=== PATIENT | female | born 1935 | race Caucasian/White ===

== ENCOUNTER → 2019-05-02 10:43 | Outpatient (CLI) | payer MEDICARE, OTHER, SELFPAY ==
--- NOTE | 2019-05-02 10:47 | DI.MRI.S_ITS ---
PROCEDURE: MR LUMBAR SPINE WO CON INDICATIONS: Lumbar radiculopathy right TECHNIQUE: Noncontrast sagittal T1 spin echo and T2 fast echo, sagittal STIR, axial T1 and T2 fast spin echo through the lumbar spine. In cases with scoliosis, additional coronal T2 fast spin echo may be performed. COMPARISON: [facility], CR, XR LUMBAR SPINE MIN 4V, 05/02/2019, 11:39. [facility], MR, L-SPINE WITHOUT CONTRAST, 09/07/2010, 19:54. FINDINGS: Image quality: Excellent. Miscellaneous: There are 6 nonrib-bearing lumbar vertebral bodies. The highest [id number] lumbar vertebral body will be labeled as T12, in keeping with the previous lumbar numbering system. Axial imaging will be described as being from T10-T11 through L5-S1. Alignment and Curvature: Utilizing the above numbering system, mild degenerative anterolisthesis of L5 on S1 and L4 on L5 is again noted. There is trace degenerative retrolisthesis of L2 on L3 and of L1 on L2. Bone Marrow: Marrow is of normal overall signal. No acute vertebral body compression fractures. Spinal Cord: Conus medullaris terminates at the T12-L1 level. Visualized cord demonstrates normal signal and size. Paraspinous Soft Tissues: No paravertebral masses. T10-T11: No canal stenosis or foraminal stenosis. T11-T12: Mild disc bulge. No canal stenosis or foraminal stenosis. T12-L1: A disc bulge has increased, and is now moderate. Mild facet hypertrophy. No significant canal stenosis. Mild bilateral foraminal stenosis. L1-L2: Mild disc bulge. Mild facet ligament hypertrophy. Mild canal stenosis. Mild to moderate right foraminal stenosis. L2-L3: Significant interval progression. Moderately severe disc height loss. Diffuse disc bulge. Facet and ligament hypertrophy. Severe canal stenosis. Mild to moderate bilateral foraminal stenosis. L3-L4: Significant interval progression. Interval increase in disc height loss, mild to moderate. Diffuse disc bulge. Facet and ligament hypertrophy. Moderate canal stenosis. Mild to moderate right foraminal narrowing. Mild left foraminal narrowing. L4-L5: Worsening of disc height loss, moderately severe. Significant progression of facet arthropathy. Mild canal stenosis. Mild to moderate bilateral foraminal stenosis. L5-S1: Progression of bilateral facet hypertrophy. Mild canal stenosis. Mild to moderate right foraminal stenosis. IMPRESSION: 1. If surgery is contemplated in this individual, please note the numbering system utilized in this dictation corresponds to the numbering system on the prior MRI. There are, in fact, 6 nonrib-bearing lumbar vertebral bodies. The highest of these levels is labeled as T12. Careful correlation for surgical levels is suggested. 2. Significant interval progression. Canal stenosis is now mild at L1-L2, severe at L2-L3, moderate at L3-L4, mild at L4-L5, and mild at L5-S1. 3. Multilevel facet arthropathy. Dictated by: Rene Forrest M.D. on 05/02/2019 at 16:39 Approved by: Rene Forrest M.D. on 05/02/2019 at 17:04
--- NOTE | 2019-05-02 10:47 | DI.RAD.S_ITS ---
PROCEDURE: XR LUMBAR SPINE MIN 4V INDICATIONS: Lumbar radiculopathy right TECHNIQUE: 5 views of the lumbar spine were acquired. COMPARISON: None. FINDINGS: Bones: No fracture or focal osseous destruction. Dextrocurvature noted. Multilevel degenerative endplate sclerosis and spurring. Diffuse facet arthropathy. Prominent anterior osteophytes, some of which demonstrate bridging. Severe narrowing of the L4-L5 and L5-S1 disc spaces. Grade 1 anterolisthesis of L4 on L5. Moderate narrowing of the remaining disc spaces. Possible syndesmophyte formation present in the visualized lower thoracic spine. Bilateral hip joint degeneration, moderate. Soft tissues: Overlying bowel gas pattern is normal. No suspicious soft tissue calcifications. Oblique images: No pars defects. IMPRESSION: Severe lumbar spondylosis and facet arthropathy . 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 Dextroscoliosis Dictated by: Lanre Barajas M.D. on 05/02/2019 at 13:50 Approved by: Lanre Barajas M.D. on 05/02/2019 at 13:58
== END ==
PROVIDERS: PCP Internal Medicine; Referring Provider Physical Medicine & Rehabilitation; Visit Provider Physical Medicine & Rehabilitation
DX: M47.26 Other spondylosis with radiculopathy, lumbar region (principal); M47.27 Other spondylosis with radiculopathy, lumbosacral region; M48.061 Spinal stenosis, lumbar region without neurogenic claudication; M48.07 Spinal stenosis, lumbosacral region
CPT/HCPCS: 72110; 72148

== ENCOUNTER → 2019-09-04 11:43 | Outpatient (CLI) | payer MEDICARE, OTHER, SELFPAY ==
--- NOTE | 2019-09-04 | DI.RAD.S_ITS ---
PROCEDURE: XR CHEST 2V INDICATIONS: Dyspnea, chronic heart failure TECHNIQUE: 2 views of the chest were acquired. COMPARISON: [facility], CR, XR CHEST 1 VIEW, 08/12/2019, 10:59. [facility], CR, XR CHEST 2 VIEWS, 08/24/2019, 8:35. FINDINGS: Surgical changes and devices: None. Lungs and pleura: Scattered subsegmental atelectasis and/or scarring. No focal consolidation. No pleural effusions or pneumothorax. Mediastinum: Mediastinal contours are normal. Heart size is normal. Bones and chest wall: No suspicious bony abnormalities. Soft tissues appear unremarkable. IMPRESSION: Scattered scarring/atelectasis. No definite interval change or acute consolidation Dictated by: Lanre Barajas M.D. on 09/04/2019 at 14:00 Approved by: Lanre Barajas M.D. on 09/04/2019 at 14:02
[2019-09-04 13:01] LABS: BUN Creatinine Ratio 13.5 (6-22); Blood Urea Nitrogen 15 mg/dL (7-17); Calcium 9.4 mg/dL (8.4-10.2); Carbon Dioxide 35 mmol/L (22-32); Chloride 98 mmol/L (98-107); Estimated Glomerular Filt Rate 47.1 mL/min (>60); Glucose 110 mg/dL (80-110); HEMOLYSIS < 15 (0-50); Potassium 4.5 mmol/L (3.4-5.1); Sodium 137 mmol/L (137-145)
== END ==
PROVIDERS: PCP Internal Medicine; Referring Provider Internal Medicine Cardiovascular Disease; Visit Provider Internal Medicine Cardiovascular Disease
DX: I50.32 Chronic diastolic (congestive) heart failure (principal); I10 Essential (primary) hypertension
CPT/HCPCS: 36415; 71046; 80048